=== PATIENT | female | born 1960 | race Caucasian/White ===

== ENCOUNTER → 2017-11-22 | Day surgery (SDC) | payer SELFPAY ==
[~2017-11-22] MED LIST: Adacel (T-DAP) 0.5 ML VIAL ONE; Bupivacaine PF 0.5% 30 ML VIAL ONE; CEFAZOLIN 1 GM VIAL ONE; CEFAZOLIN/Water 2 GM/20 ML SYRINGE ONE; Dexamethasone 20 MG/5 ML VIAL ONE; Fentanyl 100 MCG/2 ML VIAL ONE; HYDROcodone/Acetaminophen 5/325 mg Tablet ONE; HYDROmorphone 0.5 MG/0.5 ML SYRINGE ONE; Lidocaine 0.5%/Epinephrine 1:200,000 50 ml Vial ONE; Lidocaine 1% PF 5 ML VIAL ONE; Lorazepam 2 MG/ML VIAL ONE; Midazolam HCl 2 mg/2 ml Vial ONE; Ondansetron HCl/PF 4 MG/2 ML Vial ONE; PROPOFOL 200 MG/20 ML VIAL ONE; cefTRIAXone\\ROCEPHIN 2 GM VIAL ONE
[2017-11-22 09:40] LABS: #Eosinphils 0.2 thou/uL (0.0-0.7); #Monocytes 0.7 thou/uL (0.11-0.59); #Neutrophils 6.2 thou/uL (1.40-6.50); %Basophils 0.5 % (0.0-1.0); %Eosinophils 2.6 % (0.0-10.0); %Lymphocytes 21.9 % (21.0-51.0); %Monocytes 7.4 % (0.0-10.0); %Neutrophils 67.6 % (42.0-75.0); Mean Corpuscular HGB CONC 33.2 g/dL (32.0-36.0); Mean Corpuscular Volume 90.1 fL (78.0-98.0); Mean Platelet Volume 10.4 fL (7.4-10.4); Platelet Count 177 thou/uL (130-400); RBC Distribution Width 12.2 % (11.5-14.5); Red Blood Cell (RBC) Count 4.67 mill/uL (4.20-5.40); White Blood Cell (WBC) Count 9.1 thou/uL (4.8-10.8)
[2017-11-22 10:02] LABS: ALT (SGPT) 18 U/L (8-55); AST (SGOT) 18 U/L (5-34); Albumin 4.5 g/dL (3.5-5.0); Alkaline Phosphatase 80 U/L (40-150); Anion Gap 14 mmol/L (10-20); BUN (Urea Nitrogen) 16 mg/dL (9.8-20.1); Bilirubin, Total 0.6 mg/dL (0.2-1.2); Calc. Creatinine Clearance 0 mL/min (70-130); Calcium 10.1 mg/dL (7.8-10.44); Carbon Dioxide 28 mmol/L (22-29); Chloride 104 mmol/L (98-107); Estimated GFR-MDRD 67; Globulin 3.5 g/dL (2.4-3.5); Glucose 167 mg/dL (70-105); Potassium 4.2 mmol/L (3.5-5.1); Sodium 142 mmol/L (136-145)
--- NOTE | 2017-11-22 10:21 | RAD ---
RIGHT FINGER TWO VIEWS: HISTORY: Trauma. COMPARISON: None. FINDINGS: There is traumatic amputation through the distal phalanx diaphysis and the overlying soft tissues of the index finger. Mild degenerative changes of the thumb carpometacarpal joint. IMPRESSION: Traumatic, obliquely oriented soft tissue and osseous amputation of the distal phalanx diaphysis of t he index finger. POS: BRIDGET
--- NOTE | 2017-11-22 10:54 | HP ---
ADMITTING PHYSICIAN: Dr. Narinder Marie DATE OF SERVICE: 11/22/2017 REQUESTING PHYSICIAN: Dr. Xochitl Wagoner, Emergency Services REASON FOR ADMISSION: Right hand index finger amputation. HISTORY OF PRESENT ILLNESS: This is a 57-year-old female who states that her dogs got into a fight on Monday of this week. She states that one of her dogs is blind and mistakenly bit her right hand index finger. She states that it took the end of the finger off. She was seen at [facility] Monday evening. Her finger was cleaned and wrapped up. She presents today for higher level of care to be evaluated by Orthopedics. The patient does report some numbness in the right hand. She is a diabetic who takes pills as well as insulin. She is right hand dominant. She states her dog was up to date on all shots. She denies any other injuries. Pain is constant and throbbing. She was unable to afford her antibiotic pills at the pharmacy. PAST MEDICAL HISTORY: Hypertension, hyperlipidemia, diabetes, anxiety, and depression as well as asthma. PAST SURGICAL HISTORY: Includes hysterectomy, cholecystectomy, left shoulder surgery and right knee surgery. SOCIAL HISTORY: The patient states that she smokes approximately half a pack per day of cigarettes for the last 10 years. She drinks socially. No history of illicit drug use. She lives at home with family in [place], [place]. She is a stay at home . FAMILY HISTORY: Reviewed and noncontributory. ALLERGIES: No known drug allergies. REVIEW OF SYSTEMS: A 12 point review of systems was conducted and otherwise negative except for as stated above. PHYSICAL EXAMINATION: VITAL SIGNS: Blood pressure 127/78, pulse of 100, respiratory rate of 20, temperature 98.3. GENERAL: The patient is awake and alert. She is in no acute distress. She is pleasant and cooperative with exam findings today. Her daughter is present at bedside. HEENT: Head is normocephalic, atraumatic. NECK: Supple. Trachea midline. CHEST: Breathing nonlabored. EXTREMITIES: The right upper extremity was evaluated. There is an amputation to the right index finger at the distal phalanx. This appears to be distal to the DIP joint. There is no skin covering the bone. This is exposed. There is no active bleeding. Sensation is decreased in the entire digit. The patient has active movement in all 4 other digits of this hand. Active motion in the wrist. No erythema, streaking up the arm. No other extremity injuries noted on exam. Radiographic images taken today including views of the right index finger show amputation at the diaphysis of the distal phalanx of the right index finger. This appears oblique in orientation. No other acute findings. ASSESSMENT: Right index finger amputation at the distal phalanx with exposed bone from 2 days ago. PLAN: At this time, due to the patient's history of diabetes and the fact that she has been unable to afford antibiotics since the time of her injury, would like to take her to the operating room for emergent I&D as well as hopeful wound closure. We will probably have to rongeur off some of this bone in order to get the skin to close over this. Risks, benefits, and alternatives discussed at length with the patient. She verbalized understanding and is amenable to this plan of care. They are ready to go forward with this procedure. She has been n.p.o. since yesterday afternoon. We will plan for surgery later this afternoon. She will be admitted for IV antibiotics following the procedure. VALERIA
--- NOTE | 2017-11-23 13:39 | OP ---
DATE OF PROCEDURE: 11/22/2017. PREOPERATIVE DIAGNOSIS: Right index fingertip amputation. POSTOPERATIVE DIAGNOSIS: Right index fingertip amputation. SURGICAL PROCEDURE: Irrigation and debridement of right index finger distal phalanx and partial woun d closure of right index finger amputation. ANESTHESIA: General. SURGEON: Dr. Narinder Marie. TOURNIQUET TIME: Zero. SPECIMEN: Bone from distal phalanx discarded. COMPLICATIONS: None. DRAINS: None. INDICATIONS: The patient is a 57-year-old lady status post dog bite wound to right index fingertip w ith loss of the fingertip as well as loss of the distal end of the distal phalanx. This was original ly seen and evaluated in the [facility] emergency room. The patient had difficulty with transporta tion to [facility] and now presents 48 hours post-injury for revision and shortening of distal phalan x to allow for soft tissue closure. Informed consent has been obtained. I believe all questions hav e been answered. DESCRIPTION OF PROCEDURE: The patient was brought to the operating room and a timeout performed foll owed by induction of general anesthesia. Next, a sterile prep and drape was performed of the right u pper extremity. The index finger tip was remarkable for relatively healthy appearing soft tissue, bu t the distal phalanx was exposed in the middle of the soft tissue ring. Subperiosteal dissection was performed using an elevator around the exposed distal phalanx such that the distal 1 cm of the bone could be visualized. This was then debrided with the rongeur bringing the bone back to a level where the soft tissue could be reapproximated over the tip of the bone. After the debridement of the bone , some marginally viable skin was also sharply debrided using a scalpel as well as some subcutaneous fat. Once the soft tissue was debrided and found to be bleeding, 3-0 nylon was used with just 2 inte rrupted sutures to bring the volar flap in approximation with the dorsal flap. This resulted in clos ure of the bone, but not tight closure of the wound given the fact that this was 48 hours out from in jury. Following this, simple reapproximation of tissue over the tip of the distal phalanx, the wound was dressed with Xeroform, gauze and a tube gauze dressing. The patient was then transferred [facility] in stable condition. There were no complications. She tolerated the procedure well. She will be discharged home on Augmentin for infection prophylaxis.
--- NOTE | 2017-12-01 05:45 | PQF ---
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 Octavia Barcenas The documentation in this patients record requires clarification to ensure coding compliance and accuracy. Check the appropriate box and include in your discharge summary. [ ] [ ] [ ] [ ] Please check this box if this does not apply to this patient [ ] Unable to determine [ ] Other diagnosis: Review the following information and exercise your independent professional judgment in responding to the clarification. Based upon the clinical findings, risk factors, and treatment, please clarify if you are treating one of the above probable or suspected diagnoses. Physician Signature: Date Time MTDD
--- NOTE | 2017-12-04 11:36 | PQF ---
POST DISCHARGE CLINICAL DOCUMENTATION IMPROVEMENT CLARIFICATION FORM l Todays Date: 12/04/2017 l Patients Name Alfredo Zaldivar l l Admit Date 11/22/2017 l Disch Date 11/22/2017 Respiratory Support Technician Contact Name: Email: Cell: Present Clinical Indicators - Signs / Symptoms Results and Location in Medical Record [ ] Documentation of: [ ] [ ] [ ] Risks [ ] [ ] [ ] Treatment [ ] Wound closure of finger Please specify the wound closure size for the finger. [ ] [ ] Dr. Narinder Marie The documentation in this patients record requires clarification to ensure coding compliance and accuracy. Check the appropriate box and include in your discharge summary/addendum. [ x] __2 cm [ ] [ ] Please check this box if this does not apply to this patient [ ] Unable to determine [ ] Other diagnosis/procedure: Review the following information and exercise your independent professional judgment in responding to the clarification. Based upon the clinical findings, risk factors, and treatment, please clarify if you are treating one of the above probable or suspected diagnoses. Physician Signature: Date Time MTDD
== END ==
LOC: ERS 09:02 → SDC/OP 18:07
PROVIDERS: ATTEND Orthopaedic Surgery
PROC: 0HBQXZZ Excision of Finger Nail, External Approach (ICD-10-PCS; principal; 2017-11-22)
PROC: 0PBT0ZZ Excision of Right Finger Phalanx, Open Approach (ICD-10-PCS; principal; 2017-11-22)
DX: S68.120A Partial traumatic metacarpophalangeal amputation of right index finger, initial encounter (principal); I10 Essential (primary) hypertension; E78.5 Hyperlipidemia, unspecified; E11.9 Type 2 diabetes mellitus without complications; F41.8 Other specified anxiety disorders; J45.909 Unspecified asthma, uncomplicated; Z79.899 Other long term (current) drug therapy
CPT/HCPCS: 36415; 36416; 80053; 85025; 90471; 90715; 96361; 96365; 96374; 96375; J0690; J0696; J1100; J1170; J2001; J2060; J2250; J2270; J2405; J2704; J3010; S0020

== ENCOUNTER 2017-12-17 14:26 | Emergency (ER) | payer SELFPAY ==
[2017-12-17] MEDS ORDERED: HYDROcodone/Acetaminophen 5/325 mg Tablet ONE (15:19)
== END 2017-12-17 15:57 | disposition home or self-care (01) ==
LOC: ERS 14:26
DX: T21.21XA Burn of second degree of chest wall, initial encounter (principal); G89.29 Other chronic pain; M25.562 Pain in left knee; J45.909 Unspecified asthma, uncomplicated; E11.9 Type 2 diabetes mellitus without complications; E78.00 Pure hypercholesterolemia, unspecified; I10 Essential (primary) hypertension; F41.9 Anxiety disorder, unspecified; F32.9 Major depressive disorder, single episode, unspecified; F17.210 Nicotine dependence, cigarettes, uncomplicated; Z79.84 Long term (current) use of oral hypoglycemic drugs; Z79.899 Other long term (current) drug therapy; X10.0XXA Contact with hot drinks, initial encounter
CPT/HCPCS: 99283